=== PATIENT | female | born 1965 | race Native Hawaiian/Other Pacific Islander ===

== ENCOUNTER 2018-03-11 15:12 | Emergency (ER) | payer BC, OTHER ==
[2018-03-11 15:20] VITALS: BMI 23.1
[2018-03-11 15:24] VITALS: RESP 18
--- NOTE | 2018-03-11 15:58 | RAD ---
PROCEDURE: Right Hand Radiographs. HISTORY: injury COMPARISON: None. FINDINGS: BONES: No evidence of acute displaced fracture dislocation. The osseous structures intact. No obvious cortical destructive changes. JOINTS: No significant osteoarthritis SOFT TISSUES: Normal. OTHER FINDINGS: None. IMPRESSION: No evidence of acute displaced fracture nor dislocation. If symptoms persist or occult fracture suspected clinically recommend repeat radiographs 7-10 days as most fractures should become radiographically evident timeframe.
--- NOTE | 2018-03-11 16:14 | C.PDOC ---
History Of Present Illness 52 y/o female presents to the ED for evaluation of right hand injury. Patient states she fell yesterday, hitting her hand. Now complaining of pain and swelling to the hand. No changes in sensation or weakness. Time Seen by Provider: 03/11/18 15:39 Chief Complaint (Nursing): Upper Extremity Problem/Injury History Per: Patient History/Exam Limitations: no limitations Onset/Duration Of Symptoms: Days Current Symptoms Are (Timing): Still Present Past Medical History Reviewed: Historical Data, Nursing Documentation, Vital Signs Vital Signs: Last Vital Signs Temp 98.4 F 03/11/18 16:33 Pulse 88 03/11/18 16:33 Resp 18 03/11/18 16:33 BP 104/65 03/11/18 16:33 Pulse Ox 100 03/11/18 16:33 - Medical History PMH: Anxiety, Depression - [facility] Procedures TETANUS TOXOID ADMINIST (12/06/14) Family History: States: Unknown Family Hx - Social History Hx Tobacco Use: No Hx Alcohol Use: No Hx Substance Use: No - Immunization History Hx Tetanus Toxoid Vaccination: No Hx Influenza Vaccination: No Hx Pneumococcal Vaccination: No Review Of Systems Except As Marked, All Systems Reviewed And Found Negative. Musculoskeletal: Positive for: Hand Pain Neurological: Negative for: Weakness, Numbness Physical Exam - Physical Exam Appears: Non-toxic, No Acute Distress Skin: Normal Color, Warm, Dry Head: Atraumatic, Normacephalic Eye(s): bilateral: Normal Inspection, PERRL, EOMI Oral Mucosa: Moist Neck: Normal ROM Chest: Symmetrical Respiratory: No Accessory Muscle Use Extremity: Normal ROM, Tenderness (and mild swelling over the dorsum of right hand), Capillary Refill (< 2 sec), No Deformity Pulses: Left Radial: Normal, Right Radial: Normal Neurological/Psych: Oriented x3, Normal Speech, Normal Motor, Normal Sensation ED Course And Treatment O2 Sat by Pulse Oximetry: 99 (RA) Pulse Ox Interpretation: Normal - Other Rad XR R HAND X-Ray: Read By Radiologist Interpretation: FINDINGS: BONES: No evidence of acute displaced fracture dislocation. The osseous structures intact. No obvious cortical destructive changes. JOINTS: No significant osteoarthritis. SOFT TISSUES: Normal. OTHER FINDINGS: None. IMPRESSION: No evidence of acute displaced fracture nor dislocation. If symptoms persist or occult fracture suspected clinically recommend repeat radiographs 7-10 days as most fractures should become radiographically evident timeframe. Progress Note: X-ray obtained and is negative. BALTA wrap applied. Patient is stable for d/c home. Advised to follow up with primary doctor in 1-2 days Disposition Counseled Patient/Family Regarding: Studies Performed, Diagnosis, Need For Followup, Rx Given - Disposition Referrals: Pj Burnette MD [Staff Provider] - Disposition: HOME/ ROUTINE Disposition Time: 16:12 Condition: STABLE Additional Instructions: Follow up with PMD within 1-2 days. Return to ED if feel worse. Prescriptions: Ibuprofen [Motrin Tab] 400 mg PO Q8 #30 tab Instructions: Hand Pain Forms: [facility] [employer] [facility] (Uzbek) - Clinical Impression Clinical Impression: Hand contusion - PA / UTILITY DRIVER / Resident Statement MD/DO has reviewed & agrees with the documentation as recorded. - Scribe Statement The provider has reviewed the documentation as recorded by the Scribe (Angie Rock) All medical record entries made by the Scribe were at my direction and personally dictated by me. I have reviewed the chart and agree that the record accurately reflects my personal performance of the history, physical exam, medical decision making, and the department course for this patient. I have also personally directed, reviewed, and agree with the discharge instructions and disposition.
[2018-03-11 16:35] VITALS: BP 104/65; PULSE 88; TEMP 98.4
[2018-03-11 17:46] VITALS: O2SAT 99
== END 2018-03-11 16:36 | disposition home or self-care (01) ==
LOC: C.ER 15:12
DX: S60.221A Contusion of right hand, initial encounter (principal); W01.0XXA Fall on same level from slipping, tripping and stumbling without subsequent striking against object, initial encounter; Y92.9 Unspecified place or not applicable